=== PATIENT | male | born 1935 | race Caucasian/White ===

== ENCOUNTER 2021-01-17 09:09 | Inpatient (IN) | payer OTHER ==
[~2021-01-17] VITALS: Ht 185.4 cm; Wt 99.3 kg
[2021-01-17] VITALS (8 sets, daily range): BP systolic 107–148; BP diastolic 48–62
[2021-01-17 09:28] LABS: ABSOLUTE NEUTROPHILS 9.1 thou/uL (1.4-8.2); BASOPHILS 0.6 % (0.0-2.0); EOSINOPHILS 4.1 % (0.0-3.0); HEMATOCRIT 37.5 % (42.0-52.0); HEMOGLOBIN 12.3 gm/dL (14.0-18.0); LYMPHOCYTES 12.3 % (24.0-44.0); MCH 29.4 pg (26.0-34.0); MCHC 32.8 g/dL (28.0-37.0); MCV 89.5 fL (80.0-100.0); MONOCYTES 13.4 % (1.0-8.0); PLATELET COUNT 107 thou/uL (150-400); POLYS 69.6 % (36.0-66.0); RBC 4.19 mil/uL (4.50-6.00); RDW 13.6 % (10.5-14.5); WBC 13.1 thou/uL (4.0-11.0)
[2021-01-17 09:38] LABS: POTASSIUM 4.4 mmol/L (3.5-5.1)
[2021-01-17 09:48] LABS: ALBUMIN 3.2 g/dL (3.4-5.0); TOTAL BILIRUBIN 1.7 mg/dL (0.2-1.0); TOTAL PROTEIN 6.9 g/dL (6.4-8.2)
[2021-01-17 10:35] LABS: APTT 25.9 Seconds (24.5-32.8); PROTIME 10.9 Seconds (10.5-12.1)
--- NOTE | 2021-01-17 11:05 | 2DMMODE ---
[facility] [place] [address] 2 D/M-MODE ECHOCARDIOGRAM Name: OTÑITO NOEL Room #: DEP MVonRVon#: [id number] Admission: 01/17/21 Attend Phys: Discharge: 01/17/21 Date of : 39 Report #: [id number] THIS REPORT FOR: cc: Lanre Luna MD, Bruce H. MD Lammoglia, Francisco J. MD ~ APPROVED REPORT Study performed: 01/17/2021 09:26:48 EXAM: Comprehensive 2D, Doppler, and color-flow Echocardiogram Patient Location: ER Status: STAT BSA: 2.17 HR: 66 bpm BP: 107/41 mmHg Rhythm: NSR Other Information Study Quality: Technically Difficult Technically limited study due to limited windows/patches/ flat on back in ER. Indications Heart block. Syncope. Recent TAVR. Aortic Valve AoV Peak Jean.: 2.95 m/s AO Peak Gr.: 34.74 mmHg AO Mean Gr.: 13.30 mmHg AO V2 Mean: 1.48 m/s AO V2 VTI: 270.04 cm Mitral Valve E/A Ratio: 0.8 MV Decel. Time: 253.70 ms MV E Max Jean.: 1.02 m/s MV A Jean.: 1.34 m/s MV PHT: 73.57 ms Tricuspid Valve RAP Estimate: 5.00 mmHg [facility] [address] [place] [address] 2 D/M-MODE ECHOCARDIOGRAM Name: TOÑITO NOEL Room #: DEP Sravani#: [id number] Admission: 01/17/21 Attend Phys: Discharge: 01/17/21 Date of : 39 Report #: [id number] Left Ventricle The left ventricle is normal size. Concentric left ventricular hypertrophy. Left ventricular systolic function is normal. LVEF is 55%. Mild diastolic dysfunction is present (impaired relaxation pattern). Right Ventricle The right ventricle is normal size. The right ventricular systolic function is normal. Atria The left atrium size is normal. The right atrium size is normal. Aortic Valve Recent TAVR. Peak gradient of 35mmHg; mean 13mmHg. Trace to mild aortic regurgitation. Mitral Valve Moderate mitral annular calcification. There is no mitral valve regurgitation noted. No evidence of mitral valve stenosis. Tricuspid Valve Tricuspid valve is not well visualized. There is no tricuspid valve regurgitation noted. Unable to assess PA pressure. Pulmonic Valve Pulmonic valve is not well visualized. Great Vessels IVC is normal in size and collapses >50% with inspiration. Pericardium There is no pericardial effusion. <Conclusion> The left ventricle is normal size. Concentric left ventricular hypertrophy. LVEF is 55%. The right ventricle is normal size. The left atrium size is normal. The right atrium size is normal. Recent TAVR. Peak gradient of 35mmHg; mean 13mmHg. Trace to mild aortic regurgitation. Moderate mitral annular calcification. [facility] [address] [place] [address] 2 D/M-MODE ECHOCARDIOGRAM Name: SADIETOÑITOGriffin LOWE Room #: [facility]P [id number] Admission: 01/17/21 Attend Phys: Discharge: 01/17/21 Date of : 39 Report #: [id number] There is no mitral valve regurgitation noted. Tricuspid valve is not well visualized. There is no tricuspid valve regurgitation noted. Unable to assess PA pressure. There is no pericardial effusion. <ELECTRONICALLY SIGNED> By: Segundo Liu MD 01/17/21 1104 1104 1104 Segundo Liu MD /INF
--- NOTE | 2021-01-17 11:52 | EKG ---
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: TIMMY : 1935 Requested By: Daly Pascal Order Number: [id number] MD: Dallas Cat Measurements Intervals [place] Rate: 66 P: -10 VA: 216 QRS: -37 QRSD: 158 T: 12 QT: 454 QTc: 476 Interpretive Statements Sinus rhythm Borderline prolonged VA interval Right bundle branch block Lateral infarct, age indeterminate No previous ECG available for comparison Electronically Signed On 01-17-2021 11:52:09 CDT by Dallas Cat [email or web address] <ELECTRONICALLY SIGNED> By: Dallas Cat MD, [facility] 01/17/21 1152 1012 11 Dallas Cat MD, FACC /EPI
[2021-01-17 14:31] LABS: FOLIC ACID 17.5 ng/mL (8.6-58.9)
--- NOTE | 2021-01-18 00:15 | NUR ---
PATIENT WAS A NEW ADMISSION TO THE UNIT THIS EVENING. HE ARRIVED VIA CART FROM THE FOOD SPECIALIST AND HAD NO ISSUES TRANSFERRING INTO BED WITH ASSISTANCE. PATIENT IS FULLY ALERT AND ORIENTED AND ABLE TO PARTICIPATE FULLY IN HIS ADMISSION. PATIENT HAS LEFT ARM IMMOBILIZER FOR NEW PACEMAKER. NURSE TO COMPLETE ADMISSION AND INITIATE PLAN OF CARE.
[2021-01-18 00:30] VITALS: BP 148/57
[2021-01-18 04:31] VITALS: BP 120/58
[2021-01-18 06:52] LABS: ABSOLUTE NEUTROPHILS 6.4 thou/uL (1.4-8.2); BASOPHILS 0.6 % (0.0-2.0); EOSINOPHILS 5.1 % (0.0-3.0); HEMATOCRIT 31.7 % (42.0-52.0); HEMOGLOBIN 10.8 gm/dL (14.0-18.0); LYMPHOCYTES 9.8 % (24.0-44.0); MCH 30.3 pg (26.0-34.0); MCV 89.2 fL (80.0-100.0); PLATELET COUNT 79 thou/uL (150-400); POLYS 69.5 % (36.0-66.0); RBC 3.56 mil/uL (4.50-6.00); RDW 13.5 % (10.5-14.5); WBC 9.2 thou/uL (4.0-11.0)
[2021-01-18 07:03] LABS: CALCIUM 8.2 mg/dL (8.5-10.1); CREATININE 1.4 mg/dL (0.7-1.3); MAGNESIUM 2.2 mg/dL (1.8-2.4); POTASSIUM 4.6 mmol/L (3.5-5.1)
[2021-01-18 07:18] LABS: CHOLESTEROL 100 mg/dL (<200); HDL CHOLESTEROL 38 mg/dL (>40); LDL CHOLESTEROL 48 mg/dL (<100); TC:HDL 2.6 Ratio (Not establshd); TRIGLYCERIDE 74 mg/dL (<150); VLDL 15 mg/dL (<40)
[2021-01-18] MEDS ORDERED: EZETIMIBE10 MG PO (08:43)
[2021-01-18 09:10] VITALS: BP 114/51
[2021-01-18 11:50] VITALS: BP 114/60
--- NOTE | 2021-01-18 13:52 | NUR ---
OT SPOKE WITH PT. TO EXPLAIN ROLE OF OT. PT. INDEP. RECALLS POST PACEMAKER PRECAUTIONS. PT. REPORTS NO OT NEEDS AT THIS TIME AND DECLINES FORMAL EVALUATION. OT ASSURES PT. HE CAN REQUEST OT TO RETURN IF QUESTIONS ARISE. OT WILL PLACE PT. ON D/C LIST.
--- NOTE | 2021-01-18 15:54 | EKG ---
[address] [place] [address] ELECTROCARDIOGRAM REPORT Name: TOÑITO NOEL Room #: 207-P ADM IN M.R.#: [id number] Admission: 01/17/21 Attend Phys: Brian Hunt MD Discharge: Date of : 39 Report #: [id number] [facility] ED Test Date: 2021-01-17 Test Time: 09:10:32 Pat Name: TOÑITO NOEL Department: Room: 207 P Gender: M Payroll Secretary: UNKNOWN : 1935 Requested By: Brian Hunt Order Number: [id number] MD: Dallas Cat Measurements Intervals [place] Rate: 39 P: 33 MO: 213 QRS: 114 QRSD: 173 T: -47 QT: 519 QTc: 418 Interpretive Statements SINUS BRADYCARDIA RBBB ST depr, consider ischemia, inferior leads No previous ECG available for comparison Electronically Signed On 01-18-2021 15:54:27 CDT by Dallas Cat [email or web address] <ELECTRONICALLY SIGNED> By: Dallas Cat MD, [facility] 01/18/21 1554 0910 9 Dallas Cat MD, FACDiana /EPI
[2021-01-18 16:10] VITALS: BP 135/66
--- NOTE | 2021-01-18 16:51 | NUR ---
TOOK OVER CARE FOR THIS PATIENT AT 0700. PATIENT ALERT AND ORIENTATED X4. PATIENT RESTING COMFORTABLY IN BED. LEFT SHOULD IMMOBILIZER REMOVED TODAY BY DR. PHIPPS. PATIENT DENIES SHORTNESS OF AIR, CHEST PAIN, DIZZINESS, HEADACHE, NAUSEA, VOMITING, OR ANY INCREASE IN SWELLING. PATIENT ON ROOM AIR AT THIS TIME. PATIENT AMBULATING TO BATHROOM WITH SUPERVISION AND GATE BELT. PATIENT DENIES ANY ADDITIONAL NEEDS AT THIS TIME. FALL PRECAUTIONS IN PLACE AND CALL LIGHT WITHIN REACH.
[2021-01-18] MEDS ORDERED: LIPITOR40 MG PO (18:08)
[2021-01-18] MEDS ORDERED: LISINOPRIL20 MG PO (18:08)
[2021-01-18 19:45] VITALS: BP 147/65
[2021-01-19 04:45] VITALS: BP 138/58
[2021-01-19 05:37] LABS: HEMATOCRIT 29.8 % (42.0-52.0); HEMOGLOBIN 10.1 gm/dL (14.0-18.0); MCH 30.4 pg (26.0-34.0); MCV 89.5 fL (80.0-100.0); RBC 3.33 mil/uL (4.50-6.00); RDW 13.6 % (10.5-14.5); WBC 9.2 thou/uL (4.0-11.0)
[2021-01-19 06:12] LABS: CALCIUM 8.2 mg/dL (8.5-10.1); CREATININE 1.2 mg/dL (0.7-1.3); POTASSIUM 4.7 mmol/L (3.5-5.1)
[2021-01-19 08:00] VITALS: BP 123/62
[2021-01-19 10:55] VITALS: BP 123/62
--- NOTE | 2021-01-19 11:50 | NUR ---
PT IS AXOX4, COOPERATIVE; VSS, AFEBRILE, AV PACED ON THE MONITOR. PPM SITE C/D/I, NO HEMATOMA, DERMABOND. CARDIOLOGY CONSULTED, DR MABRY CONSULTED. PT D/C HOME WITH NO NEEDS. D/C EDUCATION ON FOLLOWUP APPT AND MEDICATIONS. PT COMMUNICATED UNDERSTANDING. NO CONCERNS AT THIS TIME.
--- NOTE | 2021-01-19 13:05 | P ---
[facility] [place] [address] PROCEDURE REPORT Name: TOÑITO NOEL Room #: 207-P ADM IN M.R.#: [id number] Admission: 01/17/21 Attend Phys: Brian Hunt MD Discharge: Date of : 39 Report #: [id number] THIS REPORT FOR: cc: Lanre Luna MD, Bruce H. MD Couchonnal, Luis F. MD ~ cc: PLACIDO AMOS MD DATE OF SERVICE: 01/17/2021 PERMANENT PACEMAKER IMPLANTATION DATE OF PROCEDURE: 01/17/2021 PREOPERATIVE DIAGNOSES: 1. Syncope. 2. Complete heart block. 3. Transaortic valve replacement, postop day 5. HISTORY: The patient is an 85-year-old male who is 5 days out from a recent transaortic valve replacement performed at the [facility] with an Reis valve. He had some conduction issues post-procedure, but was closely monitored and followed by electrophysiology clinic and discharged yesterday after it appears that his conduction system had stabilized. This morning, he had a syncopal episode at home, and when his son was trying to take him to the hospital, he had a recurrent syncopal episode and was therefore brought here to the emergency room where he was found to be in intermittent complete heart block with 2 or 3 syncopal episodes in the ER. During my evaluation, he went into complete heart block with asystole several times despite dopamine drip and therefore was requiring intermittent external pacing. A preprocedural echo was performed showing normal LV size and function with normal function of his transaortic valve replacement. ANESTHESIA: The patient underwent MAC anesthesia with no anesthesia related complications. PROCEDURE PERFORMED: 1. Temporary pacemaker insertion or temporary wire insertion. 2. Dual chamber pacemaker implantation. 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 We discussed the details of the procedure including the risks, which include but not limited to bleeding, infection, vascular damage, cardiac perforation, pneumothorax. They understood these risks and are willing to proceed. The patient was brought to the EP laboratory in fasting and unsedated state. He was prepped for a temporary wire placement. I did not [facility] [address] [place] [address] PROCEDURE REPORT Name: TOÑITO NOEL Room #: 207-P [facility] IN ..#: [id number] Admission: 01/17/21 Attend Phys: Brian Hunt MD Discharge: Date of : 39 Report #: [id number] sedate him in order to maintain as much rhythm as possible. He was currently on a dopamine drip at 5 mcg. Once prepped, I placed a 6-Kinyarwanda short sheath in the right femoral vein using the modified Seldinger technique. I placed a quadripolar catheter into the right ventricle with adequate pacing and sensing thresholds. Next, the patient was prepped for pacemaker implantation and was now sedated. He underwent a venogram showing the patency of left axillary vein and received IV vancomycin for antibiotic prophylaxis given his recent hospitalization. I injected lidocaine below the level of left clavicle. Incision was made, pocket created over the prepectoral fascia. Access was obtained twice to left axillary vein and sheath positioned using the modified Seldinger technique. The RV lead was positioned with adequate pacing and sensing thresholds and then the atrial lead was positioned, but had poor R waves, so I repositioned this and got better values. Both leads were then sutured to the prepectoral fascia connected to the device and tug tests were performed. After the device was connected to the leads, the temporary wire was pulled under fluoroscopy with no interference with the implanted pacemaking wires. Next, the pocket was irrigated with vancomycin. Pocket was then closed in 2 layers using 2-0 for the deep layer, 3-0 for the middle layer and surgical glue was placed to outer skin layer. The patient awoke neurologically and hemodynamically intact. No complications and no significant bleeding. The implanted pacemaker was a Connectem model number W3DR01, serial number [id number]. The atrial lead was a 5076, 52 cm, serial number [id number]. The RV lead was a 5076, serial number [id number]. The atrial lead demonstrated P-wave at 2.3 millivolts, pacing impedance of 494 ohms, pacing threshold 0.8 volts at 0.4 milliseconds. The RV lead demonstrated R waves of 4.8 millivolts, pacing impedance of 665 ohms, pacing threshold 0.5 volts at 0.4 milliseconds. The device was programmed to the AAIR/DDDR 60-130 mode. CONCLUSION: 1. Successful temporary pacemaker insertion and removal. 2. Successful dual chamber pacemaker implantation. 3. Satisfactory atrial and right ventricular pacing and sensing thresholds. <ELECTRONICALLY SIGNED> By: Bon Hernandez MD 01/19/21 1305 1301 [id number] Bon Hernandez MD /nt
== END 2021-01-19 15:09 | disposition home or self-care (01) | DRG 242 ==
LOC: ER 09:09 → 2N 11:39 → EROBS 11:39 → TBA 13:06 → 2N 21:16
PROVIDERS: Emergency Medicine; Nurse Practitioner; ADMIT Hospitalist; ATTEND Hospitalist
PROC: 0JH606Z Insertion of Pacemaker, Dual Chamber into Chest Subcutaneous Tissue and Fascia, Open Approach (ICD-10-PCS; principal; 2021-01-17)
PROC: B51N1ZZ Fluoroscopy of Left Upper Extremity Veins using Low Osmolar Contrast (ICD-10-PCS; principal; 2021-01-17)
PROC: 5A1223Z Performance of Cardiac Pacing, Continuous (ICD-10-PCS; principal; 2021-01-17)
PROC: 02H63JZ Insertion of Pacemaker Lead into Right Atrium, Percutaneous Approach (ICD-10-PCS; principal; 2021-01-17)
PROC: 02HK3JZ Insertion of Pacemaker Lead into Right Ventricle, Percutaneous Approach (ICD-10-PCS; principal; 2021-01-17)
DX: I44.2 Atrioventricular block, complete (principal); N17.0 Acute kidney failure with tubular necrosis; Z20.822 Contact with and (suspected) exposure to COVID-19; E78.5 Hyperlipidemia, unspecified; E78.00 Pure hypercholesterolemia, unspecified; I12.9 Hypertensive chronic kidney disease with stage 1 through stage 4 chronic kidney disease, or unspecified chronic kidney disease; I35.0 Nonrheumatic aortic (valve) stenosis; N18.9 Chronic kidney disease, unspecified; D69.6 Thrombocytopenia, unspecified; Z95.2 Presence of prosthetic heart valve; Z85.118 Personal history of other malignant neoplasm of bronchus and lung; Z87.891 Personal history of nicotine dependence; Z85.46 Personal history of malignant neoplasm of prostate; Z79.899 Other long term (current) drug therapy
CPT/HCPCS: 10081; 62110; 62900; 70005

== ENCOUNTER → 2021-02-07 | Outpatient (CLI) | payer OTHER ==
[~2021-02-07] MED LIST: EZETIMIBE10 MG PO; LIPITOR40 MG PO; LISINOPRIL20 MG PO
== END ==
LOC: SJCVC 13:01
PROVIDERS: ATTEND Internal Medicine Cardiovascular Disease
DX: R60.0 Localized edema (principal); Z95.4 Presence of other heart-valve replacement; Z79.82 Long term (current) use of aspirin; Z79.899 Other long term (current) drug therapy

== ENCOUNTER → 2021-02-09 | Outpatient (CLI) | payer OTHER | LOC: SJCVCIMAG 14:36 | PROVIDERS: ATTEND Internal Medicine Cardiovascular Disease | DX: R94.31 Abnormal electrocardiogram [ECG] [EKG] (principal); I45.10 Unspecified right bundle-branch block; I44.2 Atrioventricular block, complete; I11.9 Hypertensive heart disease without heart failure; I35.1 Nonrheumatic aortic (valve) insufficiency; E78.5 Hyperlipidemia, unspecified; Z95.2 Presence of prosthetic heart valve; Z79.82 Long term (current) use of aspirin; Z79.899 Other long term (current) drug therapy; Z98.890 Other specified postprocedural states; I35.0 Nonrheumatic aortic (valve) stenosis; D69.6 Thrombocytopenia, unspecified; Z95.0 Presence of cardiac pacemaker ==